=== PATIENT | female | born 1985 | race Native Hawaiian/Other Pacific Islander ===

== ENCOUNTER 2019-01-19 14:26 | Emergency (ER) | payer OTHER ==
[2019-01-19 14:47] VITALS: BP 143/91
--- NOTE | 2019-01-19 14:58 | Event Note ---
ED Screening Note Date of service: 01/19/19 Time: 14:50 ED Screening Note: 33 y/o female comes in for sorethroat and difficulties in swallowing times 4 months. Patient reports that she is constantly spitting. She reports that she has been seen at [facility] and was placed on abx and steroids. She still has a sore throat. She admits that she has an appointment with ENT tomorrow but came in for wosening pain. This initial assessment/diagnostic orders/clinical plan/treatment(s) is/are subj ect to change based on patients health status, clinical progression and re- assessment by fellow clinical providers in the ED. Further treatment and workup at subsequent clinical providers discretion. Patient/guardian urged not to elope from the ED as their condition may be serious if not clinically assessed and managed. Initial orders include:
[2019-01-19] MEDS ORDERED: IBUPROFEN PO ONE (15:25)
--- NOTE | 2019-01-19 15:37 | Emergency Department Report ---
HPI - General Chief Complaint: Sore Throat Time Seen by Provider: 01/19/19 14:50 ED Past Medical Hx - Past Medical History Previous Medical History?: No - Surgical History Past Surgical History?: No - Family History Family history: no significant - Social History Smoking Status: Never Smoker Substance Use Type: Alcohol ED Review of Systems ROS: Stated complaint: SORE THROAT Other details as noted in HPI Comment: All other systems reviewed and negative Physical Exam - Physical Exam Vital Signs: Vital Signs 01/19/19 14:43 Temperature 98.3 F Pulse Rate 86 Blood Pressure 143/91 O2 Sat by Pulse 100 Oximetry ED Course Vital Signs 01/19/19 14:43 Temperature 98.3 F Pulse Rate 86 Blood Pressure 143/91 O2 Sat by Pulse 100 Oximetry - Reevaluation(s) Reevaluation #1: 01/19/19 18:25 TAKING PO MEDS WITHOUT DIFFICULTY CONTROLLING SECRETIONS CT PENDING- DEPARTMENT CALLED ED Medical Decision Making - Lab Data Result diagrams: 01/19/19 15:28 01/19/19 15:28 - Radiology Data Radiology results: report reviewed, image reviewed - Medical Decision Making Lab Results 01/19/19 01/19/19 01/19/19 Range/Units 15:28 15:28 16:30 WBC 12.0 H (4.5-11.0) K/mm3 RBC 4.81 (3.65-5.03) M/mm3 Hgb 12.2 (10.1-14.3) gm/dl Hct 37.0 (30.3-42.9) % MCV 77 L (79-97) fl MCH 25 L (28-32) pg MCHC 33 (30-34) % RDW 14.0 (13.2-15.2) % Plt Count 309 (140-440) K/mm3 Sodium 135 L (137-145) mmol/L Potassium 3.7 (3.6-5.0) mmol/L Chloride 99.4 (98-107) mmol/L Carbon Dioxide 23 (22-30) mmol/L Anion Gap 16 mmol/L BUN 11 (7-17) mg/dL Creatinine 0.4 L (0.7-1.2) mg/dL Estimated GFR > 60 ml/min BUN/Creatinine Ratio 28 % Glucose 102 H (65-100) mg/dL Calcium 9.1 (8.4-10.2) mg/dL Total Bilirubin 0.50 (0.1-1.2) mg/dL AST 16 (5-40) units/L ALT 18 (7-56) units/L Alkaline Phosphatase 64 (35-129) units/L Total Protein 8.0 (6.3-8.2) g/dL Albumin 4.3 (3.9-5) g/dL Albumin/Globulin Ratio 1.2 % HCG, Quant < 2 (0-4) mIU/mL Urine Color (Yellow) Urine Turbidity (Clear) Urine pH (5.0-7.0) Ur Specific [place] (1.003-1.030) Urine Protein (Negative) mg/dL Urine Glucose (UA) (Negative) mg/dL Urine Ketones (Negative) mg/dL Urine Blood (Negative) Urine Nitrite (Negative) Ur Reducing Substances Urine Bilirubin (Negative) Urine Ictotest Urine Urobilinogen (<2.0) mg/dL Ur Leukocyte Esterase (Negative) Urine WBC (Auto) (0.0-6.0) /HPF Urine RBC (Auto) (0.0-6.0) /HPF U Epithel Cells (Auto) (0-13.0) /HPF Urine Bacteria (Auto) (Negative) /HPF Urine HCG, Qual (Negative) 01/19/19 Range/Units 16:46 WBC (4.5-11.0) K/mm3 RBC (3.65-5.03) M/mm3 Hgb (10.1-14.3) gm/dl Hct (30.3-42.9) % MCV (79-97) fl MCH (28-32) pg MCHC (30-34) % RDW (13.2-15.2) % Plt Count (140-440) K/mm3 Sodium (137-145) mmol/L Potassium (3.6-5.0) mmol/L Chloride (98-107) mmol/L Carbon Dioxide (22-30) mmol/L Anion Gap mmol/L BUN (7-17) mg/dL Creatinine (0.7-1.2) mg/dL Estimated GFR ml/min BUN/Creatinine Ratio % Glucose (65-100) mg/dL Calcium (8.4-10.2) mg/dL Total Bilirubin (0.1-1.2) mg/dL AST (5-40) units/L ALT (7-56) units/L Alkaline Phosphatase (35-129) units/L Total Protein (6.3-8.2) g/dL Albumin (3.9-5) g/dL Albumin/Globulin Ratio % HCG, Quant (0-4) mIU/mL Urine Color Colorless (Yellow) Urine Turbidity Clear (Clear) Urine pH 6.0 (5.0-7.0) Ur Specific [place] 1.002 L (1.003-1.030) Urine Protein <15 mg/dl (Negative) mg/dL Urine Glucose (UA) Neg (Negative) mg/dL Urine Ketones Neg (Negative) mg/dL Urine Blood Neg (Negative) Urine Nitrite Neg (Negative) Ur Reducing Substances Not Reportable Urine Bilirubin Neg (Negative) Urine Ictotest Not Reportable Urine Urobilinogen < 2.0 (<2.0) mg/dL Ur Leukocyte Esterase Neg (Negative) Urine WBC (Auto) < 1.0 (0.0-6.0) /HPF Urine RBC (Auto) 1.0 (0.0-6.0) /HPF U Epithel Cells (Auto) 3.0 (0-13.0) /HPF Urine Bacteria (Auto) 1+ (Negative) /HPF Urine HCG, Qual Negative (Negative) Critical care attestation.: If time is entered above; I have spent that time in minutes in the direct care of this critically ill patient, excluding procedure time. ED Disposition Clinical Impression: Throat pain Disposition: DC-01 TO HOME OR SELFCARE Is pt being admited?: No Does the pt Need Aspirin: No Condition: Stable Additional Instructions: DIET AND ACTIVITY TOLERATED MOTRIN OR TYLENOL FOR MILD PAIN MEDS ORDERED TODAY HYDRATE WELL WITH WATER FOLLOW UP WITH ENT- SCHEDULED IN THE AM I'VE ALSO GIVEN YOU ANOTHER REFERRAL BELOW LET THEM KNOW YOU WERE SEEN HERE AND THEY CAN REQUEST YOUR CHART Referrals: JENA OLMEDO MD [Staff Physician] - 3-5 Days Time of Disposition: 18:25
[2019-01-19 15:40] LABS: Hemoglobin 12.2 gm/dl (10.1-14.3); Mean Corpuscular HGB Conc 33 % (30-34); Mean Corpuscular Volume 77 fl (79-97); Platelet Count 309 K/mm3 (140-440); Red Blood Count 4.81 M/mm3 (3.65-5.03)
[2019-01-19] MEDS ORDERED: NACL 0.9% 1000 ML 1,000 ML IV ONE (15:52)
[2019-01-19 16:04] LABS: Alanine Aminotransferase 18 units/L (7-56); Albumin 4.3 g/dL (3.9-5); BUN/Creatinine Ratio 28; Blood Urea Nitrogen 11 mg/dL (7-17); Calcium 9.1 mg/dL (8.4-10.2); Hemolysis Index 42
[2019-01-19 17:16] LABS: HCG Qualitative,Urine Negative (Negative)
[2019-01-19 17:21] LABS: Bacteria,Urine 1+ /HPF (Negative); Bilirubin,Urine NEG (Negative); Blood,Urine NEG (Negative); Color,Urine Colorless (Yellow); Protein,Urine <15 mg/dL mg/dL (Negative); Urobilinogen,Urine < 2.0 mg/dL (<2.0); WBC,Urine < 1.0 /HPF (0.0-6.0)
[2019-01-19] MEDS ORDERED: ROCEPHIN/NS 1 GM/50 ML 1 GM/50 ML BAG IV ONE (17:45)
[2019-01-19] MEDS ORDERED: DECADRON IV ONE (17:45)
[2019-01-19] MEDS ORDERED: PERCOCET 5/325 PO ONE (18:31)
--- NOTE | 2019-01-19 19:44 | Cat Scan Report ---
CT scan of the neck with contrast: INDICATION: Throat pain TECHNIQUE: Contiguous thin cut axial images obtained through the neck following IV contrast. Sagittal and fontenot l reconstructions performed by the technologist. All CT scans at this location are performed using CT dose reduction for ALARA by means of automated exposure control. COMPARISON: None available. FINDINGS: MUCOSAL SPACE: The nasopharynx, oropharynx and vallecula, oral cavity and floor of mouth, hypopharynx , and larynx are grossly normal. Faucial tonsils are normal bilaterally. I do not see CT findings to suggest peritonsillar abscess. Styloid processes are of normal length. But not extending towards the hyoid bones. LYMPH NODES: Enlarged level 2 lymph nodes are seen bilaterally. On the left side, posterior and infer ior to the left submandibular gland, there appears to be 2 enlarged lymph nodes measuring 12 mm in th e short dimension and 16 mm in the long dimension. Second node measures 2 cm in the long dimension. O ne of these nodes have fatty hilum. I am considering these to be reactive nodes. SALIVARY GLANDS: Parotid, submandibular, and visualized sublingual glands are within normal limits. THYROID GLAND: Unremarkable. PARANASAL SINUSES: Visualized paranasal sinuses and mastoid air cells are essentially clear. SPINE: No significant abnormality of the cervical spine appreciated. VASCULAR STRUCTURES: Vascular structures are grossly normal in appearance. Surrounding soft tissues are otherwise grossly normal. IMPRESSION: I do not see peritonsillar abscess Borderline enlargement of level 2 lymph nodes on the left side; because fatty hilum, these appear to be reactive nodes Signer Name: Audrey Hilliard MD Signed: 01/19/2019 7:39 PM Workstation Name: [id number]
== END 2019-01-19 18:57 | disposition home or self-care (01) ==
LOC: ED 14:26
DX: R07.0 Pain in throat (principal)
CPT/HCPCS: 36415; 70491; 80053; 81001; 81025; 84702; 85027; 96365; 96375; 99284; J0696; J1100; J7030; Q9967